=== PATIENT | female | born 1955 | race Hispanic/Latino ===

== ENCOUNTER → 2019-04-30 | Outpatient (CLI) | payer OTHER ==
--- NOTE | 2019-04-30 12:27 | Diagnostic Imaging Report ---
Abdomen, 1 view. History: Kidney stone, left flank pain. Findings: A 6 mm stone is present projected over the lower pole of the left kidney. A left double-J internal ureteral stent is present extending from the region of the left renal pelvis to the bladder. Surgical clips are present in the right upper quadrant. Air is scattered throughout nondilated small and large bowel. There are no masses. The osseous structures are intact. IMPRESSION: Non-specific bowel gas pattern. Left renal calculus and internal ureteral stent are present. Signed by: Alex Ku on 04/30/2019 12:24 PM
== END ==
LOC: RAD 11:16
PROVIDERS: ATTEND Urology
DX: N20.0 Calculus of kidney (principal)
CPT/HCPCS: 74018

== ENCOUNTER → 2019-06-11 | Outpatient (CLI) | payer OTHER ==
--- NOTE | 2019-06-11 10:49 | Diagnostic Imaging Report ---
Abdomen, 1 view. History: Renal calculus. Comparison: 04/30/2019. Findings: Left internal ureteral stent is present. Previously seen left renal calculus is no longer identified. Air is scattered throughout nondilated small and large bowel. There are no masses or abnormal calcifications. The osseous structures are intact. Cholecystectomy clips are noted. IMPRESSION: Left internal ureteral stent is unchanged in position. Left renal calculus is no longer seen. Signed by: Alex Ku on 06/11/2019 10:46 AM
== END ==
LOC: RAD 09:40
PROVIDERS: ATTEND Urology
DX: N20.0 Calculus of kidney (principal)
CPT/HCPCS: 74018

== ENCOUNTER → 2019-07-19 | Outpatient (CLI) | payer OTHER ==
--- NOTE | 2019-07-19 16:15 | Diagnostic Imaging Report ---
Exam: KUB - 2 views Indication: Renal calculi Comparison: Multiple prior KUBs most recently of 06/11/2019 Findings: Interval removal of left internal nephroureteral stent. No radiographically apparent renal calculi. Nonobstructive bowel gas pattern. Status post cholecystectomy. No acute osseous injury. The partially visualized lung bases appear clear. Impression: Interval removal of left internal nephroureteral stent. No radiographically apparent renal calculi. Signed by: Bong Corey MD on 07/19/2019 4:12 PM
== END ==
LOC: RAD 14:31
PROVIDERS: ATTEND Urology
DX: N20.0 Calculus of kidney (principal)
CPT/HCPCS: 74018